=== PATIENT | male | born 1945 | race Caucasian/White ===

== ENCOUNTER 2020-01-05 18:59 | Inpatient (IN) | payer OTHER, MEDICAID, SELFPAY ==
[~2020-01-05] VITALS: Ht 180.3 cm; Wt 133.1 kg
[2020-01-05 19:13] VITALS: BP_SYST 150
[2020-01-05] MEDS ORDERED: ACET325T39 PO (19:32)
[2020-01-05] MEDS ORDERED: CAT.1 PO (19:32)
[2020-01-05] MEDS ORDERED: DOCU100T10 PO (19:32)
[2020-01-05] MEDS ORDERED: ACET-284 PO (19:32)
[2020-01-05] MEDS ORDERED: BISA10SU61 PR (19:32)
[2020-01-05] MEDS ORDERED: IPRA14.73 INH (19:32)
[2020-01-05] MEDS ORDERED: FINA5TAB11 PO (19:43)
[2020-01-05] MEDS ORDERED: CYAN250010 PO (19:43)
[2020-01-05] MEDS ORDERED: MOM PO (19:43)
[2020-01-05] MEDS ORDERED: MULT-300 PO (19:43)
[2020-01-05] MEDS ORDERED: FERR325T30 PO (19:43)
[2020-01-05] MEDS ORDERED: LACT1CAP69 PO (19:43)
[2020-01-05] MEDS ORDERED: MAG-151 PO (19:43)
[2020-01-05] MEDS ORDERED: POTA20LI25 PO (19:43)
[2020-01-05] MEDS ORDERED: SIMV20TA6 PO (19:43)
[2020-01-05] MEDS ORDERED: SENN8.6T19 PO (19:43)
[2020-01-05] MEDS ORDERED: LINA5TAB2 PO (19:43)
[2020-01-05] MEDS ORDERED: MIRT7.5T11 PO (19:43)
[2020-01-05] MEDS ORDERED: TAMS-11 PO (19:43)
[2020-01-05] MEDS ORDERED: PRO40 PO (19:43)
[2020-01-05] MEDS ORDERED: NEU100 PO (19:43)
[2020-01-05] MEDS ORDERED: GLUC1VIA4 IM (19:43)
[2020-01-05] MEDS ORDERED: MAGN400T39 PO (19:43)
[2020-01-05] MEDS ORDERED: ZINC220T4 PO (19:44)
[2020-01-05] MEDS ORDERED: ONDA4TAB5 PO (19:44)
[2020-01-05] MEDS ORDERED: NITROGLYCERIN 1 INCH (GM) OINT. TD ONE (20:00)
[2020-01-05 21:29] LABS: BASOPHILS % (AUTO) 0.3 % (0.0-2.0); EOSINOPHILS # (AUTO) 0.1 K/uL (0.0-0.4); EOSINOPHILS % (AUTO) 1.2 % (0.0-4.0); HEMATOCRIT 30.5 % (36-54); LYMPHOCYTES # (AUTO) 1.1 K/uL (1.0-5.5); LYMPHOCYTES % (AUTO) 26.1 % (20.5-51.5); MEAN CORPUSCULAR HEMOGLOBIN 32 pg (27-31); MEAN CORPUSCULAR HGB CONC 33 % (32-36); MEAN CORPUSCULAR VOLUME 99 fL (79.0-98.0); MONOCYTES # (AUTO) 0.3 K/uL (0.0-1.0); MONOCYTES % (AUTO) 6.1 % (1.7-9.3); NEUTROPHILS # (AUTO) 2.9 K/uL (1.8-7.7); NEUTROPHILS % (AUTO) 66.3 % (40.0-70.0); PLATELET COUNT (AUTO) 72 K/uL (130-430); RED BLOOD CELL COUNT(AUTO) 3.09 MIL/uL (4.2-6.2); RED CELL DISTRIBUTION WIDTH 18.8 % (9.0-15.0); WHITE BLOOD COUNT (AUTO) 4.3 K/uL (4.8-10.8)
[2020-01-05 21:31] LABS: BILIRUBIN,URINE NEGATIVE (NEGATIVE); BLOOD, URINE 1+ (NEGATIVE); CLARITY/URINE CLEAR (CLEAR); COLOR,URINE YELLOW (YELLOW); GLUCOSE,URINE NEGATIVE (NEGATIVE); KETONES,URINE NEGATIVE (NEGATIVE); LEUKOCYTE ESTERASE ,URINE NEGATIVE (NEGATIVE); NITRITE, URINE NEGATIVE (NEGATIVE); PH,URINE 5.5 (5.0-8.0); PROTEIN URINE TRACE (NEGATIVE); UROBILINOGEN,URINE 0.2 (0.2-1.0)
[2020-01-05 21:46] LABS: ANION GAP 5 (5-15); CALCIUM 9.1 mg/dL (8.4-11.0); CHLORIDE 110 mmol/L (98-107); CREATININE 2.36 mg/dL (0.55-1.30); GLUCOSE 96 mg/dL (70-99); POTASSIUM 3.3 mmol/L (3.5-5.1); SODIUM SERUM 145 mmol/L (136-145); UREA NITROGEN, BLOOD 33 mg/dL (8-21)
[2020-01-05 21:49] LABS: INR 1.1 (0.80-1.20)
[2020-01-05 22:00] LABS: ALANINE AMINOTRANSFERASE 23 U/L (12-78); ALBUMIN 3.1 g/dL (3.4-4.8); ASPARTATE AMINOTRANSFERASE 18 U/L (10-37); TOTAL BILIRUBIN 0.2 mg/dL (0.0-1.0)
[2020-01-05 22:29] LABS: BACTERIA,URINE FEW /HPF (None Seen); WBC,URINE 0-3 /HPF (0-3)
[2020-01-05 22:30] LABS: MUCUS,URINE None Seen /LPF (None Seen)
[2020-01-06] MEDS: NACL 0.9% 1,000 ML IV SCH ×2 (04:50→14:50)
[2020-01-06 04:51] VITALS: BP_SYST 157
[2020-01-06] MEDS ORDERED: ACETAMINOPHEN 325 MG TABLET PO PRN (05:00)
[2020-01-06] MEDS: AZITHROMYCIN 500 MG in NS 250 ML IV SCH (05:00)
[2020-01-06] MEDS: MILK OF MAGNESIA 30 ML UDC PO SCH (06:00)
[2020-01-06] MEDS: PIPERACILLIN/TAZO 3.375/DEX-IS 50 ML IV SCH ×3 (06:00→17:12)
[2020-01-06] MEDS ORDERED: PIPERACILLIN/TAZOBACTAM 3.375 GM/VIAL (ZOSYN) IV ONE (06:37)
[2020-01-06] MEDS ORDERED: AZITHROMYCIN 500 MG/VIAL (ZITHROMAX) IV ONE (06:38)
[2020-01-06 08:00] VITALS: BP_SYST 135
[2020-01-06] MEDS: FINASTERIDE 5 MG TABLET (PROSCAR) PO SCH (09:00)
[2020-01-06] MEDS: PANTOPRAZOLE SODIUM 40 MG TAB PO SCH ×2 (09:00→21:33)
[2020-01-06] MEDS ORDERED: HEPARIN SODIUM,PORCINE 5000 UNITS/ML VIAL SUBCUT ONE (10:00)
[2020-01-06] MEDS ORDERED: POTASSIUM CHLORIDE 20 MEQ/PKT PACKET PO ONE (11:30)
[2020-01-06 12:00] VITALS: BP_SYST 122
[2020-01-06 12:50] LABS: BASOPHILS % (AUTO) 0.7 % (0.0-2.0); EOSINOPHILS # (AUTO) 0.1 K/uL (0.0-0.4); EOSINOPHILS % (AUTO) 2.1 % (0.0-4.0); HEMATOCRIT 27.6 % (36-54); HEMOGLOBIN 8.9 g/dL (14.0-18.0); LYMPHOCYTES # (AUTO) 1.3 K/uL (1.0-5.5); LYMPHOCYTES % (AUTO) 39.6 % (20.5-51.5); MEAN CORPUSCULAR HEMOGLOBIN 32 pg (27-31); MEAN CORPUSCULAR HGB CONC 32 % (32-36); MEAN CORPUSCULAR VOLUME 98 fL (79.0-98.0); MONOCYTES # (AUTO) 0.2 K/uL (0.0-1.0); MONOCYTES % (AUTO) 7.1 % (1.7-9.3); NEUTROPHILS # (AUTO) 1.7 K/uL (1.8-7.7); NEUTROPHILS % (AUTO) 50.5 % (40.0-70.0); RED CELL DISTRIBUTION WIDTH 18.8 % (9.0-15.0); WHITE BLOOD COUNT (AUTO) 3.4 K/uL (4.8-10.8)
[2020-01-06 12:54] LABS: PLATELET COUNT (AUTO) 31 K/uL (130-430)
[2020-01-06 13:13] LABS: ALANINE AMINOTRANSFERASE 24 U/L (12-78); ALBUMIN 2.7 g/dL (3.4-4.8); ANION GAP 6 (5-15); ASPARTATE AMINOTRANSFERASE 20 U/L (10-37); CALCIUM 8.4 mg/dL (8.4-11.0); CHLORIDE 114 mmol/L (98-107); CREATININE 2.34 mg/dL (0.55-1.30); GLUCOSE 76 mg/dL (70-99); POTASSIUM 3.2 mmol/L (3.5-5.1); SODIUM SERUM 150 mmol/L (136-145); TOTAL BILIRUBIN 0.2 mg/dL (0.0-1.0); UREA NITROGEN, BLOOD 35 mg/dL (8-21)
[2020-01-06 18:00] VITALS: BP_SYST 123
[2020-01-06 20:00] VITALS: BP_SYST 121
[2020-01-06] MEDS: SENNOSIDES 8.6 MG TABLET PO SCH (21:33)
[2020-01-06] MEDS: TAMSULOSIN HCL 0.4 MG CAP PO SCH (21:33)
[2020-01-06] MEDS: SIMVASTATIN 20 MG TABLET PO SCH (21:33)
[2020-01-07] VITALS: BP_SYST 159
[2020-01-07] MEDS: PIPERACILLIN/TAZO 3.375/DEX-IS 50 ML IV SCH ×5 (00:02→23:25)
[2020-01-07] MEDS: INSULIN REGULAR, HUMAN 100 UNITS/ML, 10 ML VIAL (humuLIN R) SUBCUT PRN (00:03)
[2020-01-07] MEDS: NACL 0.9% 1,000 ML IV SCH (00:03)
[2020-01-07] MEDS: AZITHROMYCIN 500 MG in NS 250 ML IV SCH (04:43)
[2020-01-07] MEDS: D5NS 1,000 ML IV SCH ×3 (04:43→23:26)
[2020-01-07] MEDS: MILK OF MAGNESIA 30 ML UDC PO SCH (06:00)
[2020-01-07] MEDS ORDERED: DEXTROSE 50% JECT 50 ML DISP.SYRIN ONE (06:10)
[2020-01-07] MEDS: DEXTROSE 50% JECT 50 ML DISP.SYRIN IVP PRN ×2 (06:38→19:02)
[2020-01-07 07:29] LABS: BASOPHILS % (AUTO) 0.3 % (0.0-2.0); EOSINOPHILS # (AUTO) 0.1 K/uL (0.0-0.4); HEMATOCRIT 28.7 % (36-54); HEMOGLOBIN 9.2 g/dL (14.0-18.0); LYMPHOCYTES # (AUTO) 0.9 K/uL (1.0-5.5); LYMPHOCYTES % (AUTO) 20.6 % (20.5-51.5); MEAN CORPUSCULAR HEMOGLOBIN 32 pg (27-31); MEAN CORPUSCULAR HGB CONC 32 % (32-36); MEAN CORPUSCULAR VOLUME 98 fL (79.0-98.0); MONOCYTES # (AUTO) 0.3 K/uL (0.0-1.0); MONOCYTES % (AUTO) 7.3 % (1.7-9.3); NEUTROPHILS # (AUTO) 2.9 K/uL (1.8-7.7); NEUTROPHILS % (AUTO) 69.8 % (40.0-70.0); PLATELET COUNT (AUTO) 56 K/uL (130-430); RED BLOOD CELL COUNT(AUTO) 2.92 MIL/uL (4.2-6.2); RED CELL DISTRIBUTION WIDTH 18.7 % (9.0-15.0); WHITE BLOOD COUNT (AUTO) 4.1 K/uL (4.8-10.8)
[2020-01-07 07:58] LABS: ALANINE AMINOTRANSFERASE 27 U/L (12-78); ALBUMIN 2.8 g/dL (3.4-4.8); ANION GAP 7 (5-15); ASPARTATE AMINOTRANSFERASE 33 U/L (10-37); CALCIUM 8.2 mg/dL (8.4-11.0); CHLORIDE 114 mmol/L (98-107); CREATININE 2.45 mg/dL (0.55-1.30); GLUCOSE 109 mg/dL (70-99); POTASSIUM 3.5 mmol/L (3.5-5.1); SODIUM SERUM 150 mmol/L (136-145); TOTAL BILIRUBIN 0.4 mg/dL (0.0-1.0); UREA NITROGEN, BLOOD 35 mg/dL (8-21)
[2020-01-07 08:00] VITALS: BP_SYST 135
[2020-01-07] MEDS: PANTOPRAZOLE SODIUM 40 MG TAB PO SCH ×2 (10:30→22:00)
[2020-01-07] MEDS: FINASTERIDE 5 MG TABLET (PROSCAR) PO SCH (10:30)
[2020-01-07 20:00] VITALS: BP_SYST 142
[2020-01-07] MEDS: SIMVASTATIN 20 MG TABLET PO SCH (22:00)
[2020-01-07] MEDS: TAMSULOSIN HCL 0.4 MG CAP PO SCH (22:00)
[2020-01-07] MEDS: SENNOSIDES 8.6 MG TABLET PO SCH (22:00)
[2020-01-08 00:15] VITALS: BP_SYST 148
[2020-01-08] MEDS: AZITHROMYCIN 500 MG in NS 250 ML IV SCH (04:00)
[2020-01-08] MEDS: MILK OF MAGNESIA 30 ML UDC PO SCH (06:00)
[2020-01-08] MEDS: PIPERACILLIN/TAZO 3.375/DEX-IS 50 ML IV SCH ×3 (06:02→18:36)
[2020-01-08] MEDS ORDERED: VANCOMYCIN HCL 1 GM/NS PREMIX 250 ML IV ONE (06:30)
[2020-01-08] MEDS: PANTOPRAZOLE SODIUM 40 MG TAB PO SCH ×2 (07:58→21:45)
[2020-01-08] MEDS: FINASTERIDE 5 MG TABLET (PROSCAR) PO SCH (07:58)
[2020-01-08 08:00] VITALS: BP_SYST 113
[2020-01-08] MEDS: LINEZOLID 300 ML IV SCH ×2 (09:00→21:45)
[2020-01-08 10:18] LABS: BASOPHILS % (AUTO) 0.3 % (0.0-2.0); EOSINOPHILS # (AUTO) 0.1 K/uL (0.0-0.4); EOSINOPHILS % (AUTO) 1.9 % (0.0-4.0); HEMOGLOBIN 8.8 g/dL (14.0-18.0); LYMPHOCYTES # (AUTO) 0.8 K/uL (1.0-5.5); LYMPHOCYTES % (AUTO) 22.9 % (20.5-51.5); MEAN CORPUSCULAR HEMOGLOBIN 31 pg (27-31); MEAN CORPUSCULAR HGB CONC 32 % (32-36); MEAN CORPUSCULAR VOLUME 99 fL (79.0-98.0); MONOCYTES # (AUTO) 0.3 K/uL (0.0-1.0); MONOCYTES % (AUTO) 7.8 % (1.7-9.3); NEUTROPHILS # (AUTO) 2.5 K/uL (1.8-7.7); NEUTROPHILS % (AUTO) 67.1 % (40.0-70.0); RED BLOOD CELL COUNT(AUTO) 2.82 MIL/uL (4.2-6.2); RED CELL DISTRIBUTION WIDTH 18.6 % (9.0-15.0); WHITE BLOOD COUNT (AUTO) 3.7 K/uL (4.8-10.8)
[2020-01-08 10:24] LABS: PLATELET COUNT (AUTO) 42 K/uL (130-430)
[2020-01-08 10:32] LABS: ANION GAP 3 (5-15); C-REACTIVE PROTEIN QUANT 2.9 mg/dL (0-0.5); CALCIUM 8.2 mg/dL (8.4-11.0); CHLORIDE 114 mmol/L (98-107); CREATININE 2.45 mg/dL (0.55-1.30); GLUCOSE 118 mg/dL (70-99); PHOSPHORUS 3.8 mg/dL (2.7-4.5); POTASSIUM 3.5 mmol/L (3.5-5.1); SODIUM SERUM 146 mmol/L (136-145); UREA NITROGEN, BLOOD 31 mg/dL (8-21)
[2020-01-08 11:05] LABS: ERYTHROCYTE SEDIMENTATION RATE 21 MM/HR (0-15)
[2020-01-08] MEDS: D5NS 1,000 ML IV SCH ×2 (11:54→21:45)
[2020-01-08 12:00] VITALS: BP_SYST 132
[2020-01-08 16:00] VITALS: BP_SYST 125
[2020-01-08 21:30] VITALS: BP_SYST 128
[2020-01-08] MEDS: TAMSULOSIN HCL 0.4 MG CAP PO SCH (21:45)
[2020-01-08] MEDS: SIMVASTATIN 20 MG TABLET PO SCH (21:45)
[2020-01-08] MEDS: SENNOSIDES 8.6 MG TABLET PO SCH (21:45)
[2020-01-09] MEDS: PIPERACILLIN/TAZO 3.375/DEX-IS 50 ML IV SCH ×5 (00:38→23:49)
[2020-01-09 01:36] VITALS: BP_SYST 138
[2020-01-09] MEDS: AZITHROMYCIN 500 MG in NS 250 ML IV SCH (04:00)
[2020-01-09] MEDS: MILK OF MAGNESIA 30 ML UDC PO SCH (06:00)
[2020-01-09] MEDS: D5NS 1,000 ML IV SCH ×2 (06:32→18:27)
[2020-01-09 08:00] VITALS: BP_SYST 142
[2020-01-09 08:17] LABS: ALANINE AMINOTRANSFERASE 28 U/L (12-78); ALBUMIN 2.9 g/dL (3.4-4.8); ANION GAP 6 (5-15); ASPARTATE AMINOTRANSFERASE 20 U/L (10-37); C-REACTIVE PROTEIN QUANT 2.1 mg/dL (0-0.5); CALCIUM 8.2 mg/dL (8.4-11.0); CHLORIDE 114 mmol/L (98-107); GLUCOSE 139 mg/dL (70-99); PHOSPHORUS 3.7 mg/dL (2.7-4.5); POTASSIUM 3.2 mmol/L (3.5-5.1); SODIUM SERUM 146 mmol/L (136-145); TOTAL BILIRUBIN 0.4 mg/dL (0.0-1.0); UREA NITROGEN, BLOOD 30 mg/dL (8-21)
[2020-01-09 08:47] LABS: BASOPHILS % (AUTO) 0.4 % (0.0-2.0); EOSINOPHILS % (AUTO) 1.3 % (0.0-4.0); HEMATOCRIT 28.9 % (36-54); HEMOGLOBIN 9.1 g/dL (14.0-18.0); LYMPHOCYTES # (AUTO) 0.6 K/uL (1.0-5.5); LYMPHOCYTES % (AUTO) 23.8 % (20.5-51.5); MEAN CORPUSCULAR HEMOGLOBIN 31 pg (27-31); MEAN CORPUSCULAR HGB CONC 32 % (32-36); MEAN CORPUSCULAR VOLUME 99 fL (79.0-98.0); MONOCYTES # (AUTO) 0.1 K/uL (0.0-1.0); MONOCYTES % (AUTO) 5.7 % (1.7-9.3); NEUTROPHILS # (AUTO) 1.8 K/uL (1.8-7.7); RED BLOOD CELL COUNT(AUTO) 2.92 MIL/uL (4.2-6.2); WHITE BLOOD COUNT (AUTO) 2.6 K/uL (4.8-10.8)
[2020-01-09 08:52] LABS: PLATELET COUNT (AUTO) 35 K/uL (130-430)
[2020-01-09] MEDS: FINASTERIDE 5 MG TABLET (PROSCAR) PO SCH (09:15)
[2020-01-09] MEDS: PANTOPRAZOLE SODIUM 40 MG TAB PO SCH ×2 (09:15→20:59)
[2020-01-09] MEDS: LINEZOLID 300 ML IV SCH ×2 (09:15→21:07)
[2020-01-09] MEDS ORDERED: BUMEX 1 MG/4 ML VIAL IVP ONE (10:15)
[2020-01-09 10:59] LABS: ERYTHROCYTE SEDIMENTATION RATE 20 MM/HR (0-15); NEUTROPHILS % (AUTO) 68.8 % (40.0-70.0)
[2020-01-09 12:00] VITALS: BP_SYST 112
[2020-01-09] MEDS ORDERED: POTASSIUM CHLORIDE 40 MEQ in 0.45% NS 250 ML IV ONE (12:00)
[2020-01-09 16:00] VITALS: BP_SYST 121
[2020-01-09 19:00] VITALS: BP_SYST 110
[2020-01-09 20:00] VITALS: BP_SYST 110
[2020-01-09] MEDS: SIMVASTATIN 20 MG TABLET PO SCH (20:59)
[2020-01-09] MEDS: TAMSULOSIN HCL 0.4 MG CAP PO SCH (20:59)
[2020-01-09] MEDS: SENNOSIDES 8.6 MG TABLET PO SCH (20:59)
[2020-01-10] VITALS: BP_SYST 129
[2020-01-10 04:00] VITALS: BP_SYST 112
[2020-01-10] MEDS: PIPERACILLIN/TAZO 3.375/DEX-IS 50 ML IV SCH ×2 (05:04→12:37)
[2020-01-10] MEDS: AZITHROMYCIN 500 MG in NS 250 ML IV SCH (05:04)
[2020-01-10] MEDS: MILK OF MAGNESIA 30 ML UDC PO SCH (05:06)
[2020-01-10 07:31] LABS: ANION GAP 6 (5-15); C-REACTIVE PROTEIN QUANT 0.7 mg/dL (0-0.5); CALCIUM 7.8 mg/dL (8.4-11.0); CHLORIDE 113 mmol/L (98-107); CREATININE 2.42 mg/dL (0.55-1.30); GLUCOSE 172 mg/dL (70-99); PHOSPHORUS 3.6 mg/dL (2.7-4.5); POTASSIUM 3.4 mmol/L (3.5-5.1); SODIUM SERUM 144 mmol/L (136-145); UREA NITROGEN, BLOOD 28 mg/dL (8-21)
[2020-01-10 07:46] LABS: BASOPHILS % (AUTO) 0.1 % (0.0-2.0); EOSINOPHILS % (AUTO) 0.4 % (0.0-4.0); HEMATOCRIT 30.1 % (36-54); HEMOGLOBIN 9.5 g/dL (14.0-18.0); LYMPHOCYTES # (AUTO) 0.6 K/uL (1.0-5.5); LYMPHOCYTES % (AUTO) 22.1 % (20.5-51.5); MEAN CORPUSCULAR HEMOGLOBIN 31 pg (27-31); MEAN CORPUSCULAR HGB CONC 32 % (32-36); MEAN CORPUSCULAR VOLUME 99 fL (79.0-98.0); MONOCYTES # (AUTO) 0.1 K/uL (0.0-1.0); MONOCYTES % (AUTO) 4.7 % (1.7-9.3); NEUTROPHILS % (AUTO) 72.7 % (40.0-70.0); RED BLOOD CELL COUNT(AUTO) 3.03 MIL/uL (4.2-6.2); RED CELL DISTRIBUTION WIDTH 18.6 % (9.0-15.0); WHITE BLOOD COUNT (AUTO) 2.8 K/uL (4.8-10.8)
[2020-01-10 07:57] LABS: PLATELET COUNT (AUTO) 32 K/uL (130-430)
[2020-01-10 08:27] VITALS: BP_SYST 101
[2020-01-10] MEDS: LINEZOLID 300 ML IV SCH (08:29)
[2020-01-10 08:52] LABS: ERYTHROCYTE SEDIMENTATION RATE 13 MM/HR (0-15)
[2020-01-10] MEDS: PANTOPRAZOLE SODIUM 40 MG TAB PO SCH ×2 (09:00→22:14)
[2020-01-10] MEDS: FINASTERIDE 5 MG TABLET (PROSCAR) PO SCH (09:00)
[2020-01-10] MEDS ORDERED: FUROSEMIDE 40 MG/4 ML VIAL IVP ONE (11:15)
[2020-01-10 12:36] VITALS: BP_SYST 118
[2020-01-10] MEDS ORDERED: cefTRIAXone 1 GM in D5W 50 ML IV SCH (14:30)
[2020-01-10] MEDS: VANCOMYCIN HCL 1,500 MG in NS 250 ML IV SCH (15:39)
[2020-01-10] MEDS ORDERED: LEVOTHYROXINE SODIUM 0.075 MG TABLET PO ONE (16:30)
[2020-01-10 20:00] VITALS: BP_SYST 86
[2020-01-10] MEDS: TAMSULOSIN HCL 0.4 MG CAP PO SCH (22:15)
[2020-01-10] MEDS: SIMVASTATIN 20 MG TABLET PO SCH (22:15)
[2020-01-10] MEDS: SENNOSIDES 8.6 MG TABLET PO SCH (22:15)
[2020-01-11] VITALS (16 sets, daily range): BP systolic 36–187
[2020-01-11] MEDS: MILK OF MAGNESIA 30 ML UDC PO SCH (05:30)
[2020-01-11] MEDS ORDERED: LEVOTHYROXINE SODIUM 0.075 MG TABLET PO SCH (07:00)
[2020-01-11 07:46] LABS: BASOPHILS % (AUTO) 0.2 % (0.0-2.0); EOSINOPHILS % (AUTO) 0.1 % (0.0-4.0); HEMATOCRIT 30.3 % (36-54); HEMOGLOBIN 9.6 g/dL (14.0-18.0); LYMPHOCYTES # (AUTO) 0.4 K/uL (1.0-5.5); LYMPHOCYTES % (AUTO) 11.6 % (20.5-51.5); MEAN CORPUSCULAR HEMOGLOBIN 32 pg (27-31); MEAN CORPUSCULAR HGB CONC 32 % (32-36); MONOCYTES # (AUTO) 0.2 K/uL (0.0-1.0); MONOCYTES % (AUTO) 5.1 % (1.7-9.3); NEUTROPHILS # (AUTO) 2.6 K/uL (1.8-7.7); RED BLOOD CELL COUNT(AUTO) 2.98 MIL/uL (4.2-6.2); RED CELL DISTRIBUTION WIDTH 19.3 % (9.0-15.0); WHITE BLOOD COUNT (AUTO) 3.2 K/uL (4.8-10.8)
[2020-01-11 07:53] LABS: ALANINE AMINOTRANSFERASE 31 U/L (12-78); ALBUMIN 3.1 g/dL (3.4-4.8); ANION GAP 10 (5-15); ASPARTATE AMINOTRANSFERASE 26 U/L (10-37); CALCIUM 7.8 mg/dL (8.4-11.0); CHLORIDE 114 mmol/L (98-107); CREATININE 2.66 mg/dL (0.55-1.30); GLUCOSE 136 mg/dL (70-99); POTASSIUM 3.4 mmol/L (3.5-5.1); SODIUM SERUM 150 mmol/L (136-145); TOTAL BILIRUBIN 0.3 mg/dL (0.0-1.0); UREA NITROGEN, BLOOD 32 mg/dL (8-21)
[2020-01-11 08:07] LABS: FOLATE (FOLIC ACID) 6.5 ng/mL (>3.0); HEPATITIS A AB, IgM Negative (Negative); HEPATITIS B CORE AB, IgM Negative (Negative); HEPATITIS B SURFACE AG Negative (Negative)
[2020-01-11 08:13] LABS: MEAN CORPUSCULAR VOLUME 102 fL (79.0-98.0)
[2020-01-11] MEDS ORDERED: FUROSEMIDE 100 MG in D5W 90 ML IV SCH (09:45)
[2020-01-11] MEDS ORDERED: LEVOTHYROXINE SODIUM 0.1 MG VIAL IVP ONE ×2 (10:00→14:45)
[2020-01-11 10:19] LABS: ANTI NUCLEAR AB WITH REFLEX Positive (Negative)
[2020-01-11 10:40] LABS: PROTHROMBIN TIME 56.2 SECS (9.5-12.5)
[2020-01-11 10:41] LABS: INR 5.8 (0.80-1.20)
[2020-01-11 11:16] LABS: A/G RATIO 1.3 (0.7-1.7); ALBUMIN 3.1 g/dL (2.9-4.4); ALPHA-1-GLOBULIN 0.3 g/dL (0.0-0.4); ALPHA-2-GLOBULIN 0.5 g/dL (0.4-1.0); BETA GLOBULIN 0.8 g/dL (0.7-1.3); GAMMA GLOBULIN 0.7 g/dL (0.4-1.8); GLOBULIN, TOTAL 2.3 g/dL (2.2-3.9); M-SPIKE Not Observed g/dL (Not Observed)
[2020-01-11] MEDS ORDERED: NOREPINEPHRINE BITARTRATE 4 MG in NS 246 ML IV PRN (12:15)
[2020-01-11] MEDS: FINASTERIDE 5 MG TABLET (PROSCAR) PO SCH (12:58)
[2020-01-11] MEDS: PANTOPRAZOLE SODIUM 40 MG TAB PO SCH ×2 (12:59→21:00)
[2020-01-11] MEDS: NACL 0.9% 1,000 ML IV SCH (13:01)
[2020-01-11] MEDS ORDERED: NACL 0.9% 1,000 ML IV ONE (13:15)
[2020-01-11 13:37] LABS: PLATELET COUNT (AUTO) 25 K/uL (130-430)
[2020-01-11] MEDS ORDERED: HYDROCORTISONE SOD SUCC 100 MG/2 ML VIAL IVP ONE (14:45)
[2020-01-11] MEDS ORDERED: COMMUNICATION ORDER XX ONE (15:00)
[2020-01-11] MEDS: VANCOMYCIN HCL 1,500 MG in NS 250 ML IV SCH (15:17)
[2020-01-11] MEDS: SIMVASTATIN 20 MG TABLET PO SCH (21:00)
[2020-01-11] MEDS: SENNOSIDES 8.6 MG TABLET PO SCH (21:00)
[2020-01-11] MEDS: TAMSULOSIN HCL 0.4 MG CAP PO SCH (21:00)
[2020-01-11] MEDS ORDERED: HYDROCORTISONE SOD SUCC 100 MG/2 ML VIAL IVP SCH (22:00)
[2020-01-11] MEDS: HYDROCORTISONE SOD SUCC 100 MG/2 ML VIAL IVP SCH (22:31)
[2020-01-11] MEDS: CEFEPIME 1 GM in D5W 50 ML IV SCH (22:31)
[2020-01-12] VITALS (23 sets, daily range): BP systolic 97–175
[2020-01-12] MEDS: MILK OF MAGNESIA 30 ML UDC PO SCH (06:00)
[2020-01-12 06:58] LABS: HEMATOCRIT 27.7 % (36-54); HEMOGLOBIN 8.7 g/dL (14.0-18.0); MEAN CORPUSCULAR HEMOGLOBIN 31 pg (27-31); MEAN CORPUSCULAR HGB CONC 31 % (32-36); MEAN CORPUSCULAR VOLUME 100 fL (79.0-98.0); RED BLOOD CELL COUNT(AUTO) 2.78 MIL/uL (4.2-6.2); WHITE BLOOD COUNT (AUTO) 4.1 K/uL (4.8-10.8)
[2020-01-12 07:04] LABS: ALANINE AMINOTRANSFERASE 29 U/L (12-78); ALBUMIN 2.8 g/dL (3.4-4.8); ANION GAP 11 (5-15); ASPARTATE AMINOTRANSFERASE 20 U/L (10-37); CALCIUM 7.2 mg/dL (8.4-11.0); CHLORIDE 115 mmol/L (98-107); CREATININE 2.75 mg/dL (0.55-1.30); GLUCOSE 114 mg/dL (70-99); POTASSIUM 3.4 mmol/L (3.5-5.1); SODIUM SERUM 150 mmol/L (136-145); TOTAL BILIRUBIN 0.4 mg/dL (0.0-1.0); UREA NITROGEN, BLOOD 30 mg/dL (8-21)
[2020-01-12] MEDS: LEVOTHYROXINE SODIUM 0.1 MG VIAL IVP SCH (07:59)
[2020-01-12] MEDS ORDERED: FUROSEMIDE 40 MG/4 ML VIAL IVP ONE (08:00)
[2020-01-12] MEDS: HYDROCORTISONE SOD SUCC 100 MG/2 ML VIAL IVP SCH ×3 (08:01→21:14)
[2020-01-12 08:05] LABS: ATYPICAL LYMPHOCYTES % 0 % (0-0); BAND % (MANUAL) 7 % (0-6); BASOPHILS % (MANUAL) 0 % (0-2); EOSINOPHILS % (MANUAL) 0 % (0-7); LYMPHOCYTES % (MANUAL) 7 % (20-46); MONOCYTES % (MANUAL) 2 % (0-11); PLATELET COUNT (AUTO) 27 K/uL (130-430)
[2020-01-12] MEDS: NACL 0.9% 1,000 ML IV SCH (08:06)
[2020-01-12] MEDS ORDERED: LEVOTHYROXINE SODIUM 0.1 MG VIAL IVP SCH (09:00)
[2020-01-12] MEDS ORDERED: POTASSIUM CHLORIDE 40 MEQ in D5W 250 ML IV ONE (10:00)
[2020-01-12] MEDS: D5W 1,000 ML IV SCH (11:06)
[2020-01-12] MEDS: FINASTERIDE 5 MG TABLET (PROSCAR) PO SCH (12:19)
[2020-01-12] MEDS: PANTOPRAZOLE SODIUM 40 MG TAB PO SCH ×2 (12:19→21:00)
[2020-01-12] MEDS: VANCOMYCIN HCL 1,500 MG in NS 250 ML IV SCH (14:01)
[2020-01-12] MEDS: TAMSULOSIN HCL 0.4 MG CAP PO SCH (21:00)
[2020-01-12] MEDS: SENNOSIDES 8.6 MG TABLET PO SCH (21:00)
[2020-01-12] MEDS: SIMVASTATIN 20 MG TABLET PO SCH (21:00)
[2020-01-12] MEDS: CEFEPIME 1 GM in D5W 50 ML IV SCH (21:14)
[2020-01-13] VITALS (23 sets, daily range): BP systolic 101–190
[2020-01-13] MEDS: D5W 1,000 ML IV SCH ×2 (02:18→17:55)
[2020-01-13] MEDS ORDERED: ACETAMINOPHEN 650 MG SUPP.RECT RC PRN (03:45)
[2020-01-13] MEDS ORDERED: LORazepam 2 MG/ML VIAL IVP ONE (03:45)
[2020-01-13] MEDS ORDERED: MEROPENEM 1 GM in NS 100 ML IV SCH (05:15)
[2020-01-13] MEDS: HYDROCORTISONE SOD SUCC 100 MG/2 ML VIAL IVP SCH ×2 (05:44→14:49)
[2020-01-13] MEDS: MILK OF MAGNESIA 30 ML UDC PO SCH (06:00)
[2020-01-13] MEDS ORDERED: MEROPENEM 1 GM VIAL IV ONE (06:07)
[2020-01-13 07:17] LABS: ALANINE AMINOTRANSFERASE 33 U/L (12-78); ALBUMIN 3.1 g/dL (3.4-4.8); ANION GAP 11 (5-15); ASPARTATE AMINOTRANSFERASE 24 U/L (10-37); CALCIUM 7.6 mg/dL (8.4-11.0); CHLORIDE 114 mmol/L (98-107); CREATININE 3.73 mg/dL (0.55-1.30); GLUCOSE 137 mg/dL (70-99); POTASSIUM 4.1 mmol/L (3.5-5.1); SODIUM SERUM 148 mmol/L (136-145); TOTAL BILIRUBIN 0.4 mg/dL (0.0-1.0); UREA NITROGEN, BLOOD 39 mg/dL (8-21)
[2020-01-13 07:37] LABS: BASOPHILS % (AUTO) 0.3 % (0.0-2.0); HEMATOCRIT 27.5 % (36-54); HEMOGLOBIN 8.6 g/dL (14.0-18.0); LYMPHOCYTES # (AUTO) 0.8 K/uL (1.0-5.5); LYMPHOCYTES % (AUTO) 10.9 % (20.5-51.5); MEAN CORPUSCULAR HEMOGLOBIN 31 pg (27-31); MEAN CORPUSCULAR HGB CONC 31 % (32-36); MEAN CORPUSCULAR VOLUME 99 fL (79.0-98.0); MONOCYTES # (AUTO) 0.3 K/uL (0.0-1.0); MONOCYTES % (AUTO) 3.7 % (1.7-9.3); NEUTROPHILS # (AUTO) 6.1 K/uL (1.8-7.7); RED BLOOD CELL COUNT(AUTO) 2.76 MIL/uL (4.2-6.2); RED CELL DISTRIBUTION WIDTH 19.1 % (9.0-15.0); WHITE BLOOD COUNT (AUTO) 7.2 K/uL (4.8-10.8)
[2020-01-13 08:02] LABS: PLATELET COUNT (AUTO) 36 K/uL (130-430)
[2020-01-13 08:03] LABS: NEUTROPHILS % (AUTO) 85.1 % (40.0-70.0)
[2020-01-13] MEDS: LEVOTHYROXINE SODIUM 0.1 MG VIAL IVP SCH (09:44)
[2020-01-13] MEDS: PANTOPRAZOLE SODIUM 40 MG TAB PO SCH ×2 (09:45→21:00)
[2020-01-13] MEDS: FINASTERIDE 5 MG TABLET (PROSCAR) PO SCH (09:45)
[2020-01-13] MEDS: DOCUSATE SODIUM 100 MG CAPSULE PO SCH ×2 (09:45→21:00)
[2020-01-13] MEDS: MEROPENEM 1 GM in NS 100 ML IV SCH ×2 (09:46→21:49)
[2020-01-13] MEDS ORDERED: *TPN PER PHARMACY XX PRN (12:45)
[2020-01-13] MEDS ORDERED: DEXTROSE 50% JECT 50 ML DISP.SYRIN IVP PRN (12:45)
[2020-01-13] MEDS ORDERED: INSULIN REGULAR, HUMAN 100 UNITS/ML, 10 ML VIAL (humuLIN R) SUBCUT PRN (12:45)
[2020-01-13] MEDS: INSULIN REGULAR, HUMAN 100 UNITS/ML, 10 ML VIAL (humuLIN R) SUBCUT PRN (12:48)
[2020-01-13 13:08] LABS: PHOSPHORUS 4.2 mg/dL (2.7-4.5)
[2020-01-13] MEDS: TAMSULOSIN HCL 0.4 MG CAP PO SCH (21:00)
[2020-01-13] MEDS: SIMVASTATIN 20 MG TABLET PO SCH (21:00)
[2020-01-13] MEDS ORDERED: SODIUM ACETATE IV SCH ×7 (21:00)
[2020-01-13] MEDS: SENNOSIDES 8.6 MG TABLET PO SCH (21:00)
[2020-01-13] MEDS ORDERED: D5W 1,000 ML IV SCH (21:00)
[2020-01-13] MEDS ORDERED: POTASSIUM ACETATE IV SCH ×7 (21:00)
[2020-01-13] MEDS ORDERED: [UNRECOGNIZED DRUG - OTHER] IV SCH ×7 (21:00)
[2020-01-13] MEDS: CEFEPIME 1 GM in D5W 50 ML IV SCH (21:49)
[2020-01-14] VITALS: BP_SYST 141
[2020-01-14] MEDS ORDERED: HYDROCORTISONE SOD SUCC 100 MG/2 ML VIAL IVP SCH
[2020-01-14 01:00] VITALS: BP_SYST 153
[2020-01-14] MEDS ORDERED: LEVOTHYROXINE SODIUM 0.1 MG VIAL IVP SCH (09:00)
== END 2020-01-14 01:31 | disposition expired | DRG 871 ==
LOC: SED 18:59 → EEVIPCON 01-06 02:19 → STU 01-06 02:19 → SIC 01-11 11:10
PROVIDERS: ADMIT Internal Medicine Hospice and Palliative Medicine; ATTEND Internal Medicine Hospice and Palliative Medicine
PROC: 5A09457 Assistance with Respiratory Ventilation, 24-96 Consecutive Hours, Continuous Positive Airway Pressure (ICD-10-PCS; principal; 2020-01-12)
DX: A41.2 Sepsis due to unspecified staphylococcus (principal); G93.41 Metabolic encephalopathy; J18.9 Pneumonia, unspecified organism; N17.0 Acute kidney failure with tubular necrosis; J96.92 Respiratory failure, unspecified with hypercapnia; E03.5 Myxedema coma; I13.0 Hypertensive heart and chronic kidney disease with heart failure and stage 1 through stage 4 chronic kidney disease, or unspecified chronic kidney disease; N39.0 Urinary tract infection, site not specified; E87.0 Hyperosmolality and hypernatremia; L03.113 Cellulitis of right upper limb; D61.818 Other pancytopenia; E44.0 Moderate protein-calorie malnutrition; I48.92 Unspecified atrial flutter; Z68.41 Body mass index [BMI] 40.0-44.9, adult; R79.89 Other specified abnormal findings of blood chemistry; I48.91 Unspecified atrial fibrillation; N18.3 Chronic kidney disease, stage 3 (moderate); E83.51 Hypocalcemia; E11.65 Type 2 diabetes mellitus with hyperglycemia; D72.819 Decreased white blood cell count, unspecified; I50.9 Heart failure, unspecified; E66.01 Morbid (severe) obesity due to excess calories; E87.6 Hypokalemia; R00.1 Bradycardia, unspecified; E78.5 Hyperlipidemia, unspecified; N40.0 Benign prostatic hyperplasia without lower urinary tract symptoms; E11.22 Type 2 diabetes mellitus with diabetic chronic kidney disease; L89.90 Pressure ulcer of unspecified site, unspecified stage; Z66 Do not resuscitate; Z86.73 Personal history of transient ischemic attack (TIA), and cerebral infarction without residual deficits; Z87.440 Personal history of urinary (tract) infections; Z79.899 Other long term (current) drug therapy; Z03.818 Encounter for observation for suspected exposure to other biological agents ruled out
CPT/HCPCS: 36415; 36600; 70450-TC; 71045; 76770; 80048; 80053; 80074; 80202-TC; 81000-TC; 82140-TC; 82533; 82607; 82746; 82803-TC; 82962; 83605; 83615-TC; 83735-TC; 83880; 84100-TC; 84155; 84165; 84439; 84443-TC; 84478-TC; 84480; 84484; 85007; 85025; 85027; 85384-TC; 85610-TC; 85651-TC; 85730-TC; 86038; 86140; 87040-TC; 87070-TC; 87081; 87186-TC; 93005; 93306; 94660; 99285; C1751; G0378; J0456; J0610; J0692; J0696; J1644; J1720; J1815; J1940; J2020; J2185; J2543; J3370; J3480; J3490; J7030; J7042; J7050; J7060; U0003-CS